=== PATIENT | female | born 1990 | race Two or more races ===

== ENCOUNTER 2023-09-20 17:31 | Emergency (ER) | payer OTHER ==
[~2023-09-20] VITALS: Ht 167.6 cm; Wt 113.4 kg
[2023-09-20] MEDS ORDERED: GUAIFENESIN/DEXTROMETHORPHAN 100 MG/5 ML ML PO STA (19:22)
[2023-09-20] MEDS ORDERED: METHYLPREDNISOLONE SOD SUCC 125 MG VIAL IV STA (19:22)
[2023-09-20] MEDS ORDERED: ALBUTEROL SULFATE 3 ML/2.5 MG AMPUL.NEB IH ONE (19:30)
[2023-09-20] MEDS ORDERED: IPRATROPIUM BROMIDE 0.5 MG/2.5 ML AMPUL.NEB IH ONE (19:30)
[2023-09-20 20:02] LABS: HEMATOCRIT 30.6 % (36.0-45.00); HEMOGLOBIN 9.8 g/dL (12.0-15.00); MEAN CELL VOLUME 79.1 fL (80.00-100.00); MEAN CORPUSCULAR HEMOGLOBIN 25.3 pg (27.00-32.0); PLATELET COUNT 199 K/uL (150-450); RED BLOOD COUNT 3.87 M/uL (4.00-6.00); RED CELL DISTRIBUTION WIDTH 16.7 % (11.5-14.5)
[2023-09-20 20:31] LABS: CALCIUM 8.8 mg/dL (8.5-10.1); CREATININE SERUM 0.68 mg/dL (0.55-1.02); GFR 99.65; POTASSIUM 4.16 mEq/L (3.5-5.1)
[2023-09-20] MEDS ORDERED: MUCINEX DM ER1 EACH PO (21:55)
[2023-09-20] MEDS ORDERED: DEXAMETHASONE4 MG PO (21:55)
[2023-09-20] MEDS ORDERED: SINGULAIR10 MG PO (21:55)
[2023-09-20] MEDS ORDERED: ZYRTEC10 MG PO (21:55)
== END 2023-09-20 22:00 | disposition home or self-care (01) ==
LOC: ER 17:32
PROVIDERS: General Practice
DX: J06.9 Acute upper respiratory infection, unspecified (principal); Z87.09 Personal history of other diseases of the respiratory system

== ENCOUNTER 2025-02-27 17:48 | Emergency (ER) | payer OTHER ==
[~2025-02-27] VITALS: Ht 167.6 cm; Wt 113.4 kg
[~2025-02-27 17:48] MED LIST: DEXAMETHASONE4 MG PO; MUCINEX DM ER1 EACH PO; SINGULAIR10 MG PO; ZYRTEC10 MG PO
[2025-02-27 17:56] VITALS: BP 108/65; O2SAT 98
[2025-02-27] MEDS ORDERED: KETOROLAC TROMETHAMINE 30 MG VIAL IM ONE (19:15)
[2025-02-27] MEDS ORDERED: DICLOFENAC SODI50 MG PO (20:24)
== END 2025-02-27 21:00 ==
LOC: ER 18:23
DX: S93.492A Sprain of other ligament of left ankle, initial encounter (principal); X58.XXXA Exposure to other specified factors, initial encounter; Y93.89 Activity, other specified; Y92.69 Other specified industrial and construction area as the place of occurrence of the external cause; Y99.8 Other external cause status